=== PATIENT | male | born 1945 | race Caucasian/White ===

== ENCOUNTER 2023-08-18 05:18 | Day surgery (SDC) | payer MEDICARE, OTHER ==
[2023-08-18] MEDS ORDERED: Midazolam 1 MG/ML 2 ML SDV IV ONE (05:19)
[2023-08-18] MEDS ORDERED: fentaNYL 100 MCG/2 ML SDV IV ONE (05:19)
[2023-08-18] MEDS: Dextrose 5%-0.45% NaCl 1,000 ML IV SCH (05:54)
[2023-08-18] MEDS ORDERED: Midazolam 1 MG/ML 2 ML SDV ONE (06:16)
[2023-08-18] MEDS ORDERED: fentaNYL 100 MCG/2 ML SDV ONE (06:16)
[2023-08-18] MEDS: fentaNYL 100 MCG/2 ML SDV IV ONE ×2 (06:31→06:32)
[2023-08-18] MEDS: Midazolam 1 MG/ML 2 ML SDV IV ONE ×2 (06:32→06:33)
[2023-08-18 08:09] VITALS: BP 127/67; PULSE 60
== END 2023-08-18 08:15 | disposition home or self-care (01) ==
LOC: DL.ENDO 05:18
PROVIDERS: ATTEND Internal Medicine Gastroenterology
DX: Z12.11 Encounter for screening for malignant neoplasm of colon (principal); D12.0 Benign neoplasm of cecum; K64.8 Other hemorrhoids; K57.30 Diverticulosis of large intestine without perforation or abscess without bleeding; I25.10 Atherosclerotic heart disease of native coronary artery without angina pectoris; F32.A Depression, unspecified; E78.5 Hyperlipidemia, unspecified; G47.33 Obstructive sleep apnea (adult) (pediatric); E66.09 Other obesity due to excess calories; M19.90 Unspecified osteoarthritis, unspecified site; G25.81 Restless legs syndrome; H91.93 Unspecified hearing loss, bilateral; E11.22 Type 2 diabetes mellitus with diabetic chronic kidney disease; N18.9 Chronic kidney disease, unspecified; E11.65 Type 2 diabetes mellitus with hyperglycemia; Z68.32 Body mass index [BMI] 32.0-32.9, adult; Z86.010 Personal history of colon polyps; Z79.899 Other long term (current) drug therapy; Z79.82 Long term (current) use of aspirin; Z79.2 Long term (current) use of antibiotics; Z95.5 Presence of coronary angioplasty implant and graft
CPT/HCPCS: 45385; J2250; J3010; J7042

== ENCOUNTER 2024-03-21 11:46 | Emergency (ER) | payer MEDICARE, OTHER ==
[2024-03-21 14:16] VITALS: BP 127/68; PULSE 68
== END 2024-03-21 14:15 | disposition home or self-care (01) ==
LOC: DL.ED 11:46
DX: S76.302A Unspecified injury of muscle, fascia and tendon of the posterior muscle group at thigh level, left thigh, initial encounter (principal); I25.10 Atherosclerotic heart disease of native coronary artery without angina pectoris; E78.00 Pure hypercholesterolemia, unspecified; M19.90 Unspecified osteoarthritis, unspecified site; E66.9 Obesity, unspecified; Z95.5 Presence of coronary angioplasty implant and graft; Z79.82 Long term (current) use of aspirin; Z79.899 Other long term (current) drug therapy; X58.XXXA Exposure to other specified factors, initial encounter
CPT/HCPCS: 36415; 85379; 93971; 99284

== ENCOUNTER 2024-07-26 11:38 | Inpatient (IN) | payer MEDICARE, OTHER ==
[2024-07-26] MEDS: Acetaminophen/HYDROcodone 325-10 MG Tab PO ONE (12:33)
[2024-07-26 12:40] LABS: HEMATOCRIT 45.4 % (40.0-54.0); MEAN CORPUSCULAR HEMOGLOBIN 28.5 pg (27.0-34.0); MEAN CORPUSCULAR VOLUME 86.1 fL (80-100); PLATELET COUNT,PLT 245 10^3/uL (150-450); RED BLOOD CELL COUNT 5.27 10^6/uL (4.6-6.2); WHITE BLOOD CELL COUNT,WBC 13.1 10^3/uL (5.0-10.0)
[2024-07-26 12:54] LABS: BASOPHILS PERCENT AUTO 0.4 % (0.0-1.0); EOSINOPHILS PERCENT AUTO 1.5 % (1.0-3.0); MONOCYTES PERCENT AUTO 9.9 % (2-8); NEUTROPHILS PERCENT AUTO 74.2 % (42.2-75.2)
[2024-07-26 13:00] LABS: ALANINE AMINOTRANSFERASE,ALT 24 U/L (16-63); ALBUMIN 3.2 g/dL (3.4-5.0); ALKALINE PHOSPHATASE 75 U/L (46-116); ASPARTATE AMNIOTRANSFERASE,AST 16 U/L (15-37); BILIRUBIN TOTAL 1.1 mg/dL (0.2-1.0); BLOOD UREA NITROGEN,BUN 21 mg/dL (7-18); BUN/CREATININE RATIO 18.1 (No establ ref range); C-REACTIVE PROTEIN 15.35 ng/dL (<=0.50); CALCIUM 8.7 mg/dL (8.5-10.1); CARBON DIOXIDE,CO2 31 mmol/L (21-32); CHLORIDE,CL 99 mmol/L (98-107); CREATININE 1.16 mg/dL (0.70-1.30); GLUCOSE RANDOM 95 mg/dL (70-99); MAGNESIUM 2.3 mg/dL (1.8-2.4); PROTEIN TOTAL,TP 7.8 g/dL (6.4-8.2); SODIUM,NA 139 mmol/L (136-145)
[2024-07-26 13:01] LABS: ESTIMATED GFR 63 mL/min (>=60); PROTHROMBIN TIME 10.2 SEC (9.0-12.0)
[2024-07-26 13:03] LABS: LACTIC ACID 1.4 mmol/L (0.4-2.0)
[2024-07-26 13:18] LABS: B-TYPE NATRIURETIC PEPTIDE,BNP 587 pg/ml (0-100)
[2024-07-26 13:31] LABS: EOSINOPHILS PERCENT MAN 2 % (1-3); LYMPHOCYTES PERCENT MAN 12 % (20-50); MONOCYTES PERCENT MAN 7 % (2-8); SEG NEUTROPHILS PERCENT MAN 79 % (42-75)
[2024-07-26] MEDS ORDERED: Ondansetron 4 MG/2 ML SDV IV PRN (15:33)
[2024-07-26] MEDS ORDERED: ONDANSETRON HCL 8 MG PO PRN (18:18)
[2024-07-26] MEDS: oxyCODONE 5 MG Tab PO PRN (18:43)
[2024-07-26] MEDS ORDERED: Docusate Sodium 100 MG Cap PO PRN (19:52)
[2024-07-26] MEDS ORDERED: Bisacodyl 5 MG Tab PO PRN (19:52)
[2024-07-26] MEDS ORDERED: Sennosides/Docusate Sodium 50-8.6 MG Tab PO PRN (19:52)
[2024-07-26] MEDS ORDERED: Polyethylene Glycol 3350 Powder 17 GM Packet PO PRN (19:52)
[2024-07-26] MEDS: Tamsulosin 0.4 MG Cap.ER PO SCH (21:07)
[2024-07-26] MEDS: atorvaSTATin 20 MG Tab PO SCH (21:08)
[2024-07-26] MEDS: amLODIPine 5 MG Tab PO SCH (21:09)
[2024-07-26] MEDS: traZODone 50 MG Tab PO SCH (21:09)
[2024-07-26] MEDS: Enoxaparin 40 MG/0.4 ML Syringe SUBCUT SCH (21:11)
[2024-07-27] MEDS: Sodium Chloride 0.9% 10 ML Syringe FLUSH PRN (00:37)
[2024-07-27] MEDS: Ketorolac 30 MG/ML SDV IVPUSH PRN (00:37)
[2024-07-27] MEDS: Pantoprazole 40 MG Tab.CR PO SCH (04:35)
[2024-07-27 06:55] LABS: BASOPHILS PERCENT AUTO 0.3 % (0.0-1.0); EOSINOPHILS PERCENT AUTO 3.9 % (1.0-3.0); HEMATOCRIT 39.9 % (40.0-54.0); HEMOGLOBIN 12.9 g/dL (14.0-18.0); LYMPHOCYTES PERCENT AUTO 15.7 % (20.5-50.1); MEAN CORPUSCULAR HEMOGLOBIN 27.7 pg (27.0-34.0); MEAN CORPUSCULAR HGB CONC 32.3 g/dL (33.0-35.0); MEAN CORPUSCULAR VOLUME 85.8 fL (80-100); MONOCYTES PERCENT AUTO 10.5 % (2-8); NEUTROPHILS PERCENT AUTO 69.6 % (42.2-75.2); PLATELET COUNT,PLT 267 10^3/uL (150-450); RED BLOOD CELL COUNT 4.65 10^6/uL (4.6-6.2); WHITE BLOOD CELL COUNT,WBC 11.7 10^3/uL (5.0-10.0)
[2024-07-27 07:25] LABS: A/G RATIO 0.61; ALBUMIN 2.5 g/dL (3.4-5.0); ANION GAP 10.9 mEq/L (7-13); BILIRUBIN TOTAL 0.9 mg/dL (0.2-1.0); C-REACTIVE PROTEIN 13.51 ng/dL (<=0.50); CALCIUM 8.4 mg/dL (8.5-10.1); CREATININE 1.16 mg/dL (0.70-1.30); EST CRCL DRUG DOSING (CG) 51.57 mL/min; MAGNESIUM 2.3 mg/dL (1.8-2.4); POTASSIUM,K 3.9 mmol/L (3.5-5.1); PROTEIN TOTAL,TP 6.6 g/dL (6.4-8.2)
[2024-07-27] MEDS ORDERED: Naloxone 2 MG/2 ML Syringe IVPUSH PRN (09:19)
[2024-07-27] MEDS: FLUoxetine 10 MG Cap PO SCH (10:11)
[2024-07-27] MEDS: Bumetanide 1 MG Tab PO SCH (10:11)
[2024-07-27] MEDS: Aspirin 81 MG Tab.EC PO SCH (10:12)
[2024-07-27] MEDS: HYDROmorphone 0.5 MG/0.5 ML Syringe IVPUSH PRN (11:09)
[2024-07-28 06:36] LABS: BASOPHILS PERCENT AUTO 0.4 % (0.0-1.0); EOSINOPHILS PERCENT AUTO 3.7 % (1.0-3.0); HEMATOCRIT 43.2 % (40.0-54.0); HEMOGLOBIN 13.4 g/dL (14.0-18.0); LYMPHOCYTES PERCENT AUTO 15.1 % (20.5-50.1); MEAN CORPUSCULAR HEMOGLOBIN 26.3 pg (27.0-34.0); MEAN CORPUSCULAR VOLUME 84.7 fL (80-100); MONOCYTES PERCENT AUTO 12.3 % (2-8); NEUTROPHILS PERCENT AUTO 68.5 % (42.2-75.2); PLATELET COUNT,PLT 296 10^3/uL (150-450); WHITE BLOOD CELL COUNT,WBC 10.6 10^3/uL (5.0-10.0)
[2024-07-28 07:09] LABS: ALBUMIN 2.6 g/dL (3.4-5.0); ANION GAP 14.9 mEq/L (7-13); BILIRUBIN TOTAL 0.7 mg/dL (0.2-1.0); BUN/CREATININE RATIO 17.5 (No establ ref range); C-REACTIVE PROTEIN 9.66 ng/dL (<=0.50); CALCIUM 8.4 mg/dL (8.5-10.1); CREATININE 1.03 mg/dL (0.70-1.30); EST CRCL DRUG DOSING (CG) 58.08 mL/min; MAGNESIUM 2.4 mg/dL (1.8-2.4); POTASSIUM,K 3.9 mmol/L (3.5-5.1); PROTEIN TOTAL,TP 7.1 g/dL (6.4-8.2)
[2024-07-28 07:10] LABS: A/G RATIO 0.58
[2024-07-28] MEDS: Bumetanide 1 MG Tab PO SCH ×2 (09:18→09:36)
[2024-07-28] MEDS: Potassium Chloride 10 MEQ Tab.ER PO SCH ×2 (09:23→09:37)
[2024-07-28] MEDS: Docusate Sodium 100 MG Cap PO SCH (11:49)
[2024-07-28] MEDS: Polyethylene Glycol 3350 Powder 17 GM Packet PO SCH (11:49)
[2024-07-28] MEDS: Bisacodyl 5 MG Tab PO SCH (11:49)
[2024-07-28] MEDS: Potassium Chloride 10 MEQ Tab.ER PO ONE (16:01)
[2024-07-28] MEDS: Bumetanide 1 MG Tab PO ONE (16:01)
[2024-07-28] MEDS: Empagliflozin 10 MG Tab PO SCH (18:31)
[2024-07-28] MEDS: Acetaminophen 325 MG Tab PO PRN (19:47)
[2024-07-28] MEDS: Sennosides/Docusate Sodium 50-8.6 MG Tab PO SCH (21:15)
[2024-07-29 06:14] LABS: HEMATOCRIT 44.2 % (40.0-54.0); HEMOGLOBIN 14.3 g/dL (14.0-18.0); MEAN CORPUSCULAR HEMOGLOBIN 27.1 pg (27.0-34.0); MEAN CORPUSCULAR HGB CONC 32.4 g/dL (33.0-35.0); MEAN CORPUSCULAR VOLUME 83.7 fL (80-100); PLATELET COUNT,PLT 332 10^3/uL (150-450); RED BLOOD CELL COUNT 5.28 10^6/uL (4.6-6.2); WHITE BLOOD CELL COUNT,WBC 11.1 10^3/uL (5.0-10.0)
[2024-07-29 06:21] LABS: BASOPHILS PERCENT AUTO 0.5 % (0.0-1.0); EOSINOPHILS PERCENT AUTO 3.8 % (1.0-3.0); LYMPHOCYTES PERCENT AUTO 17.2 % (20.5-50.1); MONOCYTES PERCENT AUTO 13.5 % (2-8)
[2024-07-29 07:05] LABS: ALBUMIN 2.8 g/dL (3.4-5.0); ANION GAP 12.9 mEq/L (7-13); BILIRUBIN TOTAL 0.8 mg/dL (0.2-1.0); BUN/CREATININE RATIO 15.7 (No establ ref range); C-REACTIVE PROTEIN 5.86 ng/dL (<=0.50); CALCIUM 8.5 mg/dL (8.5-10.1); CREATININE 1.27 mg/dL (0.70-1.30); EST CRCL DRUG DOSING (CG) 47.1 mL/min; MAGNESIUM 2.2 mg/dL (1.8-2.4); POTASSIUM,K 3.9 mmol/L (3.5-5.1); PROTEIN TOTAL,TP 7.3 g/dL (6.4-8.2)
[2024-07-29 07:08] LABS: A/G RATIO 0.62
[2024-07-29 07:28] LABS: EOSINOPHILS PERCENT MAN 6 % (1-3); LYMPHOCYTES PERCENT MAN 20 % (20-50); MONOCYTES PERCENT MAN 14 % (2-8); SEG NEUTROPHILS PERCENT MAN 60 % (42-75)
[2024-07-29] MEDS: Metoprolol Succinate 25 MG Tab.ER PO SCH (08:34)
[2024-07-29 08:36] VITALS: BP 142/59; PULSE 79
== END 2024-07-29 08:40 | DRG 293 ==
LOC: DL.ED 11:38 → DL.MS 13:35
PROVIDERS: ADMIT Internal Medicine; ATTEND Internal Medicine
DX: G89.18 Other acute postprocedural pain (principal); I11.0 Hypertensive heart disease with heart failure; I50.9 Heart failure, unspecified; H91.90 Unspecified hearing loss, unspecified ear; I25.10 Atherosclerotic heart disease of native coronary artery without angina pectoris; E78.00 Pure hypercholesterolemia, unspecified; Z68.33 Body mass index [BMI] 33.0-33.9, adult; G47.33 Obstructive sleep apnea (adult) (pediatric); N40.0 Benign prostatic hyperplasia without lower urinary tract symptoms; M19.90 Unspecified osteoarthritis, unspecified site; M51.369 Other intervertebral disc degeneration, lumbar region without mention of lumbar back pain or lower extremity pain; G25.81 Restless legs syndrome; G43.909 Migraine, unspecified, not intractable, without status migrainosus; E80.6 Other disorders of bilirubin metabolism; F32.A Depression, unspecified; E66.9 Obesity, unspecified; D64.9 Anemia, unspecified; Z85.46 Personal history of malignant neoplasm of prostate; Z95.5 Presence of coronary angioplasty implant and graft; Z98.890 Other specified postprocedural states; Z98.49 Cataract extraction status, unspecified eye; Z79.899 Other long term (current) drug therapy; Z95.0 Presence of cardiac pacemaker; Z79.82 Long term (current) use of aspirin
CPT/HCPCS: 36415; 71045; 73560-LT; 80053; 83605; 83735; 83880; 85025; 85610; 85730; 86140; 97110-GP; 97162-GP; 97165-GO; 97530-GO; 97535-GO; 99222; 99232; 99238; 99284; 99285; A9270-GY; J1650; J1885